=== PATIENT | male | born 1955 | race Caucasian/White ===

== ENCOUNTER → 2021-05-07 | Outpatient (CLI) | payer OTHER, MEDICARE | END | disposition home or self-care (01) | LOC: SJCVCIMAG 13:15 | PROVIDERS: ATTEND Internal Medicine Cardiovascular Disease | DX: R00.0 Tachycardia, unspecified (principal); E78.00 Pure hypercholesterolemia, unspecified; I77.9 Disorder of arteries and arterioles, unspecified; I65.23 Occlusion and stenosis of bilateral carotid arteries; R06.02 Shortness of breath; A69.20 Lyme disease, unspecified; F17.210 Nicotine dependence, cigarettes, uncomplicated; Z72.89 Other problems related to lifestyle; Z79.82 Long term (current) use of aspirin; Z79.899 Other long term (current) drug therapy; Z82.49 Family history of ischemic heart disease and other diseases of the circulatory system; Z88.0 Allergy status to penicillin ==

== ENCOUNTER → 2021-07-08 | Outpatient (CLI) | payer OTHER | LOC: CAT 10:53 | PROVIDERS: ATTEND Internal Medicine Cardiovascular Disease | DX: Z13.6 Encounter for screening for cardiovascular disorders (principal); I25.10 Atherosclerotic heart disease of native coronary artery without angina pectoris; E78.00 Pure hypercholesterolemia, unspecified ==

== ENCOUNTER → 2021-07-09 | Outpatient (CLI) | payer OTHER, MEDICARE ==
[~2021-07-09] MED LIST: ARMOUR THYROID180 M1 PO; ASA81BEC PO; AZITHROMYCIN500 MG PO; BUPROPION XL300 MG PO; BYSTOLIC10 MG PO; FLOMAX0.4 MG PO; NEURONTIN300 MG PO; NUVIGIL250 MG PO; OMEGA 3 FISH O1 EACH PO; PLAQUENIL200 MG PO; PLAVIX 75 MG TA75 MG PO; PROBIOTIC1 EAC7 PO; PROTONIX40 M2 PO; ROSUVASTATIN CA20 MG PO; VALACYCLOVIR500 MG PO; ZETIA10 MG PO; ZINC50 MG PO; [UNRECOGNIZED DRUG - OTHER] PO
== END ==
LOC: SJCVCIMAG 13:34
PROVIDERS: ATTEND Internal Medicine Cardiovascular Disease
DX: I65.23 Occlusion and stenosis of bilateral carotid arteries (principal); R00.0 Tachycardia, unspecified; R93.1 Abnormal findings on diagnostic imaging of heart and coronary circulation; I77.9 Disorder of arteries and arterioles, unspecified; E78.00 Pure hypercholesterolemia, unspecified; Z86.19 Personal history of other infectious and parasitic diseases; Z72.89 Other problems related to lifestyle; Z79.82 Long term (current) use of aspirin; Z79.899 Other long term (current) drug therapy; Z82.49 Family history of ischemic heart disease and other diseases of the circulatory system; Z88.0 Allergy status to penicillin

== ENCOUNTER → 2021-07-15 | Outpatient (CLI) | payer OTHER, MEDICARE ==
[~2021-07-15] VITALS: Ht 185.4 cm; Wt 93.0 kg
[2021-07-15 11:05] VITALS: BP 122/61
--- NOTE | 2021-07-15 15:48 | NUR ---
PT A/OX3. PEANUT BUTTER AND CRACKERS, WATER PROVIDED.
--- NOTE | 2021-07-15 17:44 | NUR ---
PT AMBULATED TO WITHOUT INCIDENT. PT A/OX3 WITH NO C/O SOA, PAIN, OR OTHER DISCOMFORT. PT GETTING DRESSED ON OWN WILL.
--- NOTE | 2021-07-16 17:24 | CATHLAB ---
[facility] [place] [address] INVASIVE PROCEDURE REPORT Name: ERIK DEL CID Room #: REG [facility] Sahra.#: [id number] Admission: 07/15/21 Attend Phys: Jalen Cunningham MD Discharge: Date of : 55 Report #: [id number] THIS REPORT FOR: cc: Neri Lyman MD, Douglas MD Mancuso, Gerald M. MD [facility] ~ APPROVED REPORT Study performed: 07/15/2021 13:59:03 Patient Details Patient Status: Out-Patient Room #: The patient is a 66 year-old male Event Personnel Jalen Cunninghma Radiologist, Rangel Norman Oil Lease Buyer, Joe Finney RN RN, Carly hSerwood RTR, JUDE Nazario, Alma Izaguirre Monitor Procedures Performed Art Access - R femoral artery* Left Heart Cath w/or w/o Coronaries [id number] [facility] Hemostasis w/ Mynx Procedure Narrative A SHEATH BRITE-TIP 6F X 11CM ([id number]) sheath was inserted into the RFA 6F^. Coronary angiography was performed using coronary diagnostic catheters. The right coronary system was accessed and visualized with a JR4 catheter. The left coronary system was accessed and visualized with a JL4 catheter. The left ventricle was accessed and visualized with a STR PIG catheter. Left ventriculogram was performed in 30 degree projection. There was no hematoma. Intraoperative Conscious Sedation Fentanyl mcg Versed mg Fluoro Time: 6.40 minutes Dose: DAP 95896.74 cGycm2 Contrast Type and Amount: Omnipaque 147 ml Hemodynamics Because the cath was done in Lab 4 - the hemodynamics were not working, so no pressures were obtained Conclusion [facility] [address] [place] [address] INVASIVE PROCEDURE REPORT Name: ANTONTHEODORAVENKATERIK Dg [id number] Admission: 07/15/21 Attend Phys: Jalen Cunningham, Discharge: Date of : 55 Report #: [id number] #[id number] Normal left ventricular size and systolic function EF 60%. #2 left main is free of disease giving rise to LAD a ramus intermedius and a circumflex. #3 LAD with minimal irregularities extends around the apex. #4 a ramus intermedius has only mild irregularities and is moderate in distribution. No occlusive disease. #5 the nondominant circumflex OM has an eccentric ostial lesion of 50% moderate distribution otherwise widely patent. #6 a dominant right coronary is mildly ectatic there is a mid vessel lesion in the area of tortuosity of 50% otherwise a preserved vessel distally giving rise to the PDA. Recommendations and plan: Continue aggressive risk factor modification. No indication for coronary intervention. Patient okay for carotid surgery. <ELECTRONICALLY SIGNED> By: Rangel Norman MD, [facility] 07/16/21 172 22 22 Rangel Norman MD, [facility] /INF
== END | disposition home or self-care (01) ==
LOC: CATH 07:21
PROVIDERS: ATTEND Nuclear Medicine Nuclear Cardiology
DX: I25.10 Atherosclerotic heart disease of native coronary artery without angina pectoris (principal); I65.23 Occlusion and stenosis of bilateral carotid arteries; I77.811 Abdominal aortic ectasia; I70.1 Atherosclerosis of renal artery; I73.89 Other specified peripheral vascular diseases; M79.605 Pain in left leg; M79.604 Pain in right leg; I10 Essential (primary) hypertension; E78.5 Hyperlipidemia, unspecified; J45.909 Unspecified asthma, uncomplicated; F41.9 Anxiety disorder, unspecified; Z98.890 Other specified postprocedural states; Z79.899 Other long term (current) drug therapy; Z88.0 Allergy status to penicillin

== ENCOUNTER → 2021-08-04 | Outpatient (CLI) | payer OTHER, MEDICARE ==
[~2021-08-04] MED LIST changes: +ARMODAFINIL250 MG PO; +DHEA TABLET1 EACH PO; +MUPIROCIN22 GM NARES; +SELENIUM100 MCG PO; +WELLBUTRIN XL300 MG PO; +ZINC50 M3 PO
[2021-08-04 13:02] LABS: URINE BILIRUBIN NEGATIVE (Negative); URINE BLOOD NEGATIVE (Negative); URINE CLARITY CLEAR; URINE COLOR YELLOW; URINE GLUCOSE-RANDOM* NEGATIVE (Negative); URINE KETONES NEGATIVE (Negative); URINE LEUKOCYTES-REFLEX NEGATIVE (Negative); URINE NITRITE-REFLEX NEGATIVE (Negative); URINE PROTEIN (DIPSTICK) NEGATIVE (Negative); URINE SPECIFIC GRAVITY 1.025 (1.005-1.035); URINE UROBILINOGEN 0.2 E.U./dl (0.2-1.0)
[2021-08-04 13:07] LABS: ABSOLUTE NEUTROPHILS 2.5 thou/uL (1.4-8.2); BASOPHILS 0.5 % (0.0-2.0); EOSINOPHILS 3.3 % (0.0-3.0); HEMATOCRIT 38.8 % (42.0-52.0); HEMOGLOBIN 13.2 gm/dL (14.0-18.0); LYMPHOCYTES 29.7 % (24.0-44.0); MCH 34.2 pg (26.0-34.0); MCHC 34.2 g/dL (28.0-37.0); MCV 100.1 fL (80.0-100.0); MONOCYTES 8.7 % (1.0-8.0); PLATELET COUNT 226 thou/uL (150-400); POLYS 57.8 % (36.0-66.0); RBC 3.87 mil/uL (4.50-6.00); RDW 13.1 % (10.5-14.5); WBC 4.3 thou/uL (4.0-11.0)
[2021-08-04 13:20] LABS: ALBUMIN 3.5 g/dL (3.4-5.0); CREATININE 0.7 mg/dL (0.7-1.3); POTASSIUM 4.2 mmol/L (3.5-5.1); TOTAL BILIRUBIN 0.4 mg/dL (0.2-1.0); TOTAL PROTEIN 6.6 g/dL (6.4-8.2)
[2021-08-04 13:25] LABS: APTT 27.3 Seconds (24.5-32.8); INR 0.97; PROTIME 10.6 Seconds (10.5-12.1)
== END ==
LOC: PAC 10:54
PROVIDERS: ATTEND Surgery Vascular Surgery
DX: Z01.818 Encounter for other preprocedural examination (principal); Z20.822 Contact with and (suspected) exposure to COVID-19